=== PATIENT | male | born 1980 | race Caucasian/White ===

== ENCOUNTER 2023-04-27 18:39 | Emergency (ER) | payer OTHER, SELFPAY ==
[2023-04-27 18:47] VITALS: BP 152/93; PULSE 86; RESP 16; TEMP 36.9; O2SAT 98; BMI 23.6
--- NOTE | 2023-04-27 18:58 | CTR_ITS ---
PROCEDURE INFORMATION: Exam: CT Neck With Contrast Exam date and time: 04/27/2023 7:53 PM Age: 42 years old Clinical indication: Other: Dental abscess; Additional info: Left cheek swelling/mass, dental abscess TECHNIQUE: Imaging protocol: Computed tomography of the neck with contrast. Radiation optimization: All CT scans at this facility use at least one of these dose optimization techniques: automated exposure control; mA and/or kV adjustment per patient size (includes targeted exams where dose is matched to clinical indication); or iterative reconstruction. Contrast material: OMNI 350; Contrast volume: 100 ml; Contrast route: INTRAVENOUS (IV); COMPARISON: No relevant prior studies available. RADIATION DOSE METRICS: Total DLP (mGy-cm): 202 FINDINGS: Paranasal sinuses: Moderate mucosal thickening is present in the right maxillary sinus with air-fluid level. There is mild mucosal thickening present in the left maxillary sinus. The right sphenoid is nearly completely opacified. Dental: There is dental disease in the left mandible with large cavity in the 2nd mandibular molar and unerupted 3rd left mandibular molar. Pharynx: Prominence of the nasopharynx may reflect pharyngitis. Larynx: Unremarkable. Epiglottis is normal. Prevertebral and retropharyngeal spaces: Unremarkable. Salivary glands: Normal. Glands are normal in size. Thyroid: Normal. No enlarged or calcified nodules. Lymph nodes: Mildly prominent left level 1 and 2 lymph nodes are present which are likely reactive. Subcentimeter mediastinal lymph nodes are nonspecific. Trachea: Visualized trachea is unremarkable. Lungs: Unremarkable as visualized. Bones/joints: Unremarkable. No acute fracture. Soft tissues: There is asymmetric left-sided facial soft tissue swelling with skin thickening greatest overlying the mandible suspicious for cellulitis. The left platysma muscle is thickened. There is a poorly organized multiloculated fluid collection inferior to the left mandible in the submandibular space measuring 3.4 x 3.0 x 3.1 cm suspicious for an abscess. CT/CT neck w con* [id number] IMPRESSION: 1. Left mandibular dental disease with associated submandibular space multiloculated fluid collection suspicious for abscess measuring up to 3.4 cm maximum size. Overlying cellulitis changes are also present. Recommend dental consultation. 2. Possible acute maxillary sinusitis changes.
--- NOTE | 2023-04-27 19:19 | ED_ITS ---
HPI - Dental/Oral 2 General: Chief complaint: Dental/Oral Stated complaint: dental swelling, pain Time Seen by Provider: 04/27/23 18:44 History of Present Illness: To the ER with complaints of dental pain and swelling and abscess of his left mandibular molar area. Patient failed outpatient antibiotics of amoxicillin 500 mg 3 times a day for 7 days. This area Getting worse and more swollen and tender. Patient has not been to the dentist. Rates his pain at 2 out of 10 currently patient had problems like these before but they usually go away with amoxicillin. Patient presents here to the ER for further evaluation and treatment. Patient has no difficulty in swallowing or breathing Review of Systems 2 General: Reports: 10 or more systems reviewed and unremarkable except in HPI and below Physical Exam 2 Const: COMMON NORMALS: no acute distress, average body habitus, patient oriented x3, no limitations, healthy appearing, alert and well nourished HENMT: COMMON NORMALS: normocephalic, atraumatic, hearing grossly normal bilaterally, external ears normal, EAC's normal, Normal external nose present and moist oral mucous membranes HEAD & SCALP: normocephalic and atraumatic NOSE: Normal external nose present EXTERNAL EAR: Yes external ears normal EXTERNAL AUDITORY CANAL: EAC's normal OTHER: Very poor dentition, soft tissue mass/abscess noted in left cheek molar region tender to palpate no obvious gross fluctuance no erythema or streaking. Neck/C-Spine: COMMON NORMALS: full ROM, no lymphadenopathy, supple, no meningeal signs, no JVD and Thyroid normal THYROID: Thyroid normal Chest: COMMONS NORMALS: normal inspection of the chest and normal palpation of entire chest wall Resp: COMMON NORMALS: normal respiratory effort, No retractions, No use of accessory muscles and clear to auscultation bilaterally AUSCULTATION: clear to auscultation bilaterally Cardio: COMMON NORMALS: no JVD, regular rate, regular rhythm, S1 normal heart sound present, S2 normal heart sound present, No gallops present (Cardio), No clicks present (Cardio), No murmurs present (Cardio) and No rub (Cardio) R ATE: regular rate RHYTHM: regular rhythm HEART SOUNDS: S1 normal heart sound present and S2 normal heart sound present GI: COMMON NORMALS: Normal to inspection, nondistended, normoactive bowel sounds present, Soft to palpation, non-tender, No hepatosplenomegaly present and no masses PALPATION: Yes Soft to palpation and Yes No hepatosplenomegaly present Neuro: COMMON NORMALS: patient oriented x3 SENSORIUM/ORIENTATION: Yes alert MENINGEAL SIGNS: Yes no meningeal signs Course 2 Vital Signs: Vital signs: Vital Signs Temperature 98.4 F 04/27/23 18:47 Pulse Rate 86 04/27/23 18:47 Respiratory Rate 16 04/27/23 18:47 Blood Pressure 152/93 04/27/23 18:47 Pulse Oximetry 98 04/27/23 18:47 Oxygen Delivery Me thod Room Air 04/27/23 18:47 MDM - Dental/Oral Medical Decision Making Lab work showed very mildly elevated white count 12.77, neck CT showed left mandibular dental disease with associated submandibular space multiloculated fluid collection measuring up to 3.4 cm. Patient was given 600 mg of clindamycin IV will be discharged on 300 mg clindamycin p.o. 4 times daily x 7 days and referral to the case supervisor for ENT appointment for definitive care. Patient is agreeable to this. Differential Diagnosis Likely dental abscess; Unlikely gingival abscess, dental caries, toothache, fracture of tooth or aphthous ulcer Medical Records I reviewed the patient's medical records. Lab Data I reviewed the patient's lab results. 04/27/23 19:07 04/27/23 19:[address] 04/27/23 18:58 IMPRESSION: 1. Left mandibular dental disease with associated submandibular space multiloculated fluid collection suspicious for abscess measuring up to 3.4 cm maximum size. Overlying cellulitis changes are also present. Recommend dental consultation. 2. Possible acute maxillary sinusitis changes. Laboratory Results WBC 12.77 10^3/uL (3.29-11.43) H 04/27/23 19:07 RBC 4.94 10^6/uL (3.85-5.65) 04/27/23 19:07 Hgb 14.00 g/dL (11.27-16.99) 04/27/23 19:07 Hct 42.8 % (37-53) 04/27/23 19:07 MCV 86.6 fl (82-101) 04/27/23 19:07 MCH 28.3 pg (27-33) 04/27/23 19:07 MCHC 32.7 g/dL (30-55) 04/27/23 19:07 RDW 13.5 % (12.1-15.1) 04/27/23 19:07 Plt Count 429 10^3/cmm (157-399) H 04/27/23 19:07 MPV 8.7 fL (7.4-10.4) 04/27/23 19:07 Neut % (Auto) 61.2 % 04/27/23 19:07 Lymph % (Auto) 27.6 % 04/27/23 19:07 Bond % (Auto) 8.2 % 04/27/23 19:07 Eos % (Auto) 2.1 % 04/27/23 19:07 Baso % (Auto) 0.6 % 04/27/23 19:07 Neut # (Auto) 7.81 10^3/uL (1.8-7.7) H 04/27/23 19:07 Lymph # (Auto) 3.5 10^3/uL (0.8-4.8) 04/27/23 19:07 Bond # (Auto) 1.1 10^3/uL (0.2-0.9) H 04/27/23 19:07 Eos # (Auto) 0.3 10^3/uL (0.0-0.8) 04/27/23 19:07 Baso # (Auto) 0.1 10^3/uL (0.0-0.1) 04/27/23 19:07 Nucleated RBC % (auto) 0 % 04/27/23 19:07 Nucleated RBCs # 0.0 /100WBC 04/27/23 19:07 Sodium 139 mmol/L (136-145) 04/27/23 19:07 Potassium 3.7 mmol/L (3.5-5.1) 04/27/23 19:07 Chloride 103 mmol/L (98-107) 04/27/23 19:07 Carbon Dioxide 25 mmol/L (22-29) 04/27/23 19:07 Anion Gap 14.7 (5-19) 04/27/23 19:07 BUN 12 mg/dL (6-20) 04/27/23 19:07 Creatinine 0.6 mg/dL (0.7-1.2) L 04/27/23 19:07 GFR Calculation 147.8 mL/min (90-130) H 04/27/23 19:07 Glucose 113 mg/dL (65-115) 04/27/23 19:07 Calculated Osmolality 289 mOsm/kg (285-295) 04/27/23 19:07 Calcium 9.3 mg/dL (8.5-10.5) 04/27/23 19:07 Total Bilirubin 0.2 mg/dL (0.15-1.2) 04/27/23 19:07 AST 22 U/L (0-40) 04/27/23 19:07 ALT 25 U/L (0-41) 04/27/23 19:07 Alkaline Phosphatase 97 U/L (40-130) 04/27/23 19:07 Total Protein 8.0 g/dL (6.6-8.7) 04/27/23 19:07 Albumin 4.0 g/dL (3.5-5.2) 04/27/23 19:07 Globulin 4.0 g/dL (1.3-4.6) 04/27/23 19:07 All radiology interpretation(s) finalized by discharge Discharge Plan Discharge Patient Disposition: Home Clinical Impression: Submandibular abscess Condition: Stable Discharge Orders: Discharge ED (Routine); Ordered 04/27/23 Ordered By: Noé Michaud Patient Instructions: Dental Abscess (ED) Activity Restrictions/Additional Instructions: Your CT scan in ER showed you have a submandibular abscess, you are given clindamycin and your IV and you will be sent home with clindamycin to take by mouth. Your case has been referred to case management to get you an appointment with an ear nose and throat doctor. The usually do this within 1-2 business days. If you have not heard from them by then please feel free to give us call. Otherwise take all your antibiotics as directed. If the swelling worsens, redness streaking forms or any problems with swallowing or shortness of breath please return to the ER immediately. Coding Level of Care Code ED Business Analyst Manager for [facility]
[2023-04-27 19:29] LABS: Basophils # 0.1 10^3/uL (0.0-0.1); Basophils % 0.6 %; Eosinophils # 0.3 10^3/uL (0.0-0.8); Eosinophils % 2.1 %; Hematocrit 42.8 % (37-53); Lymphocytes # 3.5 10^3/uL (0.8-4.8); Lymphocytes % 27.6 %; Mean Corpuscular HGB Conc 32.7 g/dL (30-55); Mean Corpuscular Hemoglobin 28.3 pg (27-33); Mean Corpuscular Volume 86.6 fl (82-101); Mean Platelet Volume 8.7 fL (7.4-10.4); Monocytes # 1.1 10^3/uL (0.2-0.9); Monocytes % 8.2 %; Neutrophils # 7.81 10^3/uL (1.8-7.7); Neutrophils % 61.2 %; Nucleated Red Blood Cells % 0 %; Platelet Count 429 10^3/cmm (157-399); Red Blood Count 4.94 10^6/uL (3.85-5.65); Red Cell Distribution Width 13.5 % (12.1-15.1); White Blood Count 12.77 10^3/uL (3.29-11.43)
[2023-04-27 19:30] LABS: Alanine Aminotransferase 25 U/L (0-41); Alkaline Phosphatase 97 U/L (40-130); Anion Gap 14.7 (5-19); Aspartate Amino Transferase 22 U/L (0-40); Blood Urea Nitrogen 12 mg/dL (6-20); Calcium 9.3 mg/dL (8.5-10.5); Carbon Dioxide 25 mmol/L (22-29); Chloride 103 mmol/L (98-107); Glomerular Filtration Rate 147.8 mL/min (90-130); Glucose 113 mg/dL (65-115); Osmolality Calculated 289 mOsm/kg (285-295); Potassium 3.7 mmol/L (3.5-5.1); Sodium 139 mmol/L (136-145); Total Bilirubin 0.2 mg/dL (0.15-1.2)
[2023-04-27] MEDS: iohexol 350 mg/mL 500 mL Btl (per mL) IV (19:50)
[2023-04-27] MEDS: clindamycin 600 MG/50 ML PREMIX 100 MG IV (20:39)
[2023-04-27 21:10] VITALS: BP 139/95; PULSE 111; RESP 16; O2SAT 96
--- NOTE | 2023-04-28 09:43 | DCPLANNER ---
Addendum entered by Jazmyn Garay 05/12/23 14:28: i rcvd a call from [facility] letting us know that the patient declined this appointment. Original Note: Patient had a referral to see an ENT. I faxed patients chart to [facility] (Dr. Oleary office) on 04/28/23 at 0921am. Their clinic will contact patient with an appt. Fax number: [phone]. Phone number: [phone].
== END 2023-04-27 21:16 | disposition home or self-care (01) ==
PROVIDERS: Emergency Provider Emergency Medicine
DX: K12.2 Cellulitis and abscess of mouth (principal)
CPT/HCPCS: 36415; 70491; 80053; 85025; 96365; 99285; J3490; Q9967

== ENCOUNTER 2024-02-04 03:39 | Emergency (ER) | payer OTHER, SELFPAY ==
[2024-02-04 03:47] VITALS: BP 149/79; PULSE 78; RESP 18; TEMP 36.8; O2SAT 99; BMI 23.6
[2024-02-04] MEDS: lidocaine 1% 10 ML INJ INJECTION (04:05)
--- NOTE | 2024-02-04 04:27 | W.ED.EAR ---
HPI - Ear Problem General: Chief complaint: Ear Stated complaint: Left Ear Somthing In It Time Seen by Provider: 02/04/24 03:55 History of Present Illness: 43-year-old male patient with significant left ear pain beginning last evening. Pain came on quite quickly. He notes that it feels like there is something inside the ear. His hearing is muffled. He denies fever. He denies barotrauma. He says that he has been somewhat congested. Related Data Previous Rx's Medication Instructions Recorded amoxicillin 875 mg-potassium 1 tab PO BID #20 tabs 02/04/24 clavulanate 125 mg tablet Allergies Allergy/AdvReac Type Severity Reaction Status Date / Time cefaclor [From [facility]] Allergy ALGY-Rash Verified 04/27/23 18:49 Physical Exam Const: GENERAL APPEARANCE: cooperative and anxious; not frail appearing HENMT: COMMON NORMALS: normocephalic, atraumatic and Normal external nose present HEAD & SCALP: normocephalic and atraumatic FACE & SINUS: normal facial exam and face symmetric NOSE: Normal external nose present TYMPANIC MEMBRANE: TM abnormal TM laterality: left Details: bulging, dull and effusion Eye: COMMON NORMALS: Equal, round and reactive pupils present and EOMs intact bilaterally PUPIL: Yes Equal, round and reactive pupils present Neck/C-Spine: COMMON NORMALS: Thyroid normal GENERAL: Yes trachea midline and No anterior neck swelling THYROID: Thyroid normal CERVICAL SPINE: Yes cervical ROM normal Chest: CHEST: Yes Symmetrical chest wall rise Resp: COMMON NORMALS: normal respiratory effort, No retractions, No use of accessory muscles and clear to auscultation bilaterally AUSCULTATION: clear to auscultation bilaterally Cardio: COMMON NORMALS: regular rate and regular rhythm RATE: regular rate RHYTHM: regular rhythm GI: COMMON NORMALS: Normal to inspection, nondistended, normoactive bowel sounds present Extremity: COMMON NORMALS: no pedal edema Neuro: JEREMIAS COMA SCALE: document GCS findings Jeremias coma scale eye opening: Spontaneous Jeremias coma scale verbal response: Orientated Jeremias coma scale motor response: Obey commands Jeremias coma scale total score: 15 SENSORY EXAM: Yes extremities (intact) Psych: COMMON NORMALS: speech normal SPEECH: Yes normal speech Skin: COMMON NORMALS: no rashes or lesions noted GENERAL SKIN EXAM: no rashes or lesions noted Course Vital Signs: Vital signs: Vital Signs Temperature 98.2 F 02/04/24 03:47 Pulse Rate 78 02/04/24 03:47 Respiratory Rate 18 02/04/24 03:47 Blood Pressure 149/79 02/04/24 03:47 Pulse Oximetry 99 02/04/24 03:47 MDM - Ear Medical Decision Making Foreign body. There is significant bulging of the TM with blood in the middle ear suggestive of otitis. To be treated appropriately. ENT follow-up. Return for worsening. No radiology studies performed this visit Discharge Plan Discharge Patient Disposition: Home Clinical Impression: Otitis media Condition: Stable Prescriptions: New amoxicillin-pot clavulanate 875-125 mg tablet 1 tab PO BID Qty: 20 0RF Discharge Orders: Discharge ED (Routine); Ordered 02/04/24 Ordered By: Shiv Resendiz Referrals: Karri Oleary MD [Physician] - 1-3 days Patient Instructions: Ear Infection (ED), Opioid Safety, Pain Management Activity Restrictions/Additional Instructions: Continue the drops you were given in the emergency department, twice a day. Use antibiotics as directed. Return for worsening pain despite treatment, vomiting, fever despite antibiotics, other concerning symptoms. Follow-up with ENT surgery. Call them on Tuesday at the number above. Coding Level of Care Code ED Cardiology Teacher for Giovanna Evans
[2024-02-04] MEDS: amoxicillin-clav 875-125 mg Tablet 1 TAB PO (05:04)
[2024-02-04] MEDS: dexamethasone 4 mg Tablet 10 MG PO (05:04)
[2024-02-04] MEDS: neomycin-poly-hydrocort Otic Susp 10 mL Btl 4 DROP EAR-LEFT (05:04)
[2024-02-04] MEDS: oxyCODONE-APAP 5-325 mg Tablet 2 TAB PO (05:05)
== END 2024-02-04 05:07 | disposition home or self-care (01) ==
PROVIDERS: Emergency Provider Emergency Medicine
DX: H66.92 Otitis media, unspecified, left ear (principal)
CPT/HCPCS: 99283; J8540